=== PATIENT | male | born 2000 | race Caucasian/White ===

== ENCOUNTER 2020-12-10 13:39 | Emergency (ER) | payer OTHER ==
[~2020-12-10] VITALS: Ht 188 cm; Wt 81.6 kg
== END 2020-12-10 19:50 | disposition home or self-care (01) ==
LOC: ER 13:39
DX: S01.21XA Laceration without foreign body of nose, initial encounter (principal); V86.99XA Unspecified occupant of other special all-terrain or other off-road motor vehicle injured in nontraffic accident, initial encounter; Y93.89 Activity, other specified; Y92.89 Other specified places as the place of occurrence of the external cause; Y99.8 Other external cause status

== ENCOUNTER 2022-07-08 22:26 | Emergency (ER) | payer BC ==
[~2022-07-08] VITALS: Ht 188 cm; Wt 81.6 kg
== END 2022-07-08 23:43 | disposition home or self-care (01) ==
LOC: ER 22:26
DX: N34.1 Nonspecific urethritis (principal); Z88.1 Allergy status to other antibiotic agents

== ENCOUNTER 2022-07-12 00:52 | Emergency (ER) | payer OTHER ==
[~2022-07-12] VITALS: Ht 188 cm; Wt 81.6 kg
[2022-07-12] MEDS ORDERED: PYRIDIUM DS200 MG PO (05:28)
== END 2022-07-12 05:41 | disposition home or self-care (01) ==
LOC: ER 00:52
DX: N39.0 Urinary tract infection, site not specified (principal); R30.0 Dysuria; Z88.8 Allergy status to other drugs, medicaments and biological substances; N43.2 Other hydrocele